=== PATIENT | male | born 1975 | race African-American/Black ===

== ENCOUNTER 2016-08-16 08:19 | Emergency (ER) | payer BC, MEDICAID ==
[2016-08-16] MEDS ORDERED: NORMAL SALINE 1000 ML 1,000 ML IV ONE ×2 (09:24→11:25)
[2016-08-16 10:10] LABS: ABSOLUTE EOSINOPHILS # (AUTO) 0.1 10^3/uL (0.0-0.6); ABSOLUTE LYMPHOCYTES (AUTO) 1.5 10^3/uL (0.5-4.7); ABSOLUTE MONOCYTES (AUTO) 0.4 10^3/uL (0.1-1.4); ABSOLUTE NEUT (AUTO) 2.5 10^3/uL (1.7-8.2); BASOPHILS % (AUTO) 0.5 % (0-2); EOSINOPHILS % (AUTO) 2.2 % (0-6); HEMATOCRIT 45.2 % (37.9-51.0); HEMOGLOBIN 14.6 g/dL (13.5-17.0); HGB HCT DIFFERENCE -1.4; LYMPHOCYTES % (AUTO) 33.2 % (13-45); MEAN CORPUSCULAR HEMOGLOBIN 26.9 pg (27.0-33.4); MEAN CORPUSCULAR HGB CONC 32.3 g/dL (32.0-36.0); MEAN CORPUSCULAR VOLUME 84 fl (80-97); MONOCYTES % (AUTO) 9.1 % (3-13); RED BLOOD COUNT 5.41 10^6/uL (4.35-5.55); RED CELL DISTRIBUTION WIDTH 15.1 % (11.5-14.0); WHITE BLOOD COUNT 4.6 10^3/uL (4.0-10.5)
[2016-08-16 10:29] LABS: ALANINE AMINOTRANSFERASE 29 U/L (21-72); ALBUMIN 3.8 g/dL (3.5-5.0); ALKALINE PHOSPHATASE 70 U/L (38-126); ANION GAP 11 (5-19); ASPARTATE AMINO TRANSFERASE 18 U/L (17-59); BILIRUBIN,TOTAL 0.4 mg/dL (0.2-1.3); BLOOD UREA NITROGEN 14 mg/dL (7-20); CARBON DIOXIDE 31 mmol/L (22-30); CHLORIDE 94 mmol/L (98-107); CREATININE RESULT 0.94 mg/dL (0.52-1.25); POTASSIUM 4.3 mmol/L (3.6-5.0); SODIUM 136.3 mmol/L (137-145); TOTAL PROTEIN 6.8 g/dL (6.3-8.2)
[2016-08-16 10:46] LABS: GLUCOSE 406 mg/dL (75-110)
[2016-08-16] MEDS ORDERED: AMLODIPINE BESYLATE 5 MG TABLET PO ONE (11:41)
[2016-08-16 12:28] LABS: APPEARANCE,URINE CLEAR; BILIRUBIN,URINE NEGATIVE (NEGATIVE); GLUCOSE, URINE >=500 mg/dL (NEGATIVE); KETONES,URINE NEGATIVE (NEGATIVE); LEUKOCYTE ESTERASE,URINE NEGATIVE (NEGATIVE); NITRITE,URINE NEGATIVE (NEGATIVE); PROTEIN,URINE NEGATIVE (NEGATIVE); URINE SPECIFIC GRAVITY 1.029; UROBILINOGEN,URINE NEGATIVE mg/dL (<2.0)
--- NOTE | 2016-08-16 12:48 | ER Document Report ---
ED General - General Chief Complaint: Dizziness Stated Complaint: BLOOD SUGAR PROBLEMS TRAVEL OUTSIDE OF THE [place] IN LAST 30 DAYS: No - HPI Patient complains to provider of: elevated blood sugars dizziness Notes: Patient coming in for evaluation of elevated blood sugars and dizziness. Patient looks a [facility] when symptoms started nurses at the penitentiary checked his blood sugar read high therefore referred to the ER for further evaluation. Patient states history of hypertension and prediabetes states he was on metformin at one time but currently is off of it patient states he does not have a primary care physician and therefore is not have a medical evaluation some time. Patient denies fevers chills nausea vomiting diarrhea recent trauma head pain or abdominal pain. Patient states she has been drinking plenty of fluids to stay well hydrated patient otherwise is in no acute stress. Patient states dizziness is worse when ambulated feels more lightheaded otherwise lying flat patient has no symptoms. - Related Data Allergies/Adverse Reactions: No Known Allergies Allergy (Verified 08/16/16 08:29) Past Medical History - Social History Smoking Status: Never Smoker Chew tobacco use (# tins/day): No Frequency of alcohol use: None Drug Abuse: None Family History: Reviewed & Not Pertinent Patient has suicidal ideation: No Patient has homicidal ideation: No - Past Medical History Cardiac Medical History: Reports: Hx Hypertension Endocrine Medical History: Reports: Hx Diabetes Mellitus Type 2 - unconfirmed Renal/ Medical History: Denies: Hx Peritoneal Dialysis Surgical Hx: Negative - Immunizations Hx Diphtheria, Pertussis, Tetanus Vaccination: Yes Review of Systems - Review of Systems Constitutional: Other - Dizziness hypertension and hyperglycemia EENT: No symptoms reported Cardiovascular: No symptoms reported Respiratory: No symptoms reported Gastrointestinal: No symptoms reported Genitourinary: No symptoms reported Male Genitourinary: No symptoms reported Musculoskeletal: No symptoms reported Skin: No symptoms reported Hematologic/Lymphatic: No symptoms reported Neurological/Psychological: No symptoms reported Physical Exam - Vital signs Vitals: Temp Pulse Resp BP Pulse Ox 98.4 F 76 18 173/109 H 97 08/16/16 08:23 08/16/16 08:23 08/16/16 08:23 08/16/16 08:23 08/16/16 08:23 Interpretation: Hypertensive - General General appearance: Appears well, Alert - HEENT Head: Normocephalic, Atraumatic Eyes: Normal Pupils: PERRL - Respiratory Respiratory status: No respiratory distress Chest status: Nontender Breath sounds: Normal Chest palpation: Normal - Cardiovascular Rhythm: Regular Heart sounds: Normal auscultation Murmur: No - Abdominal Inspection: Normal Distension: No distension Bowel sounds: Normal Tenderness: Nontender Organomegaly: No organomegaly - Back Back: Normal, Nontender - Extremities General upper extremity: Normal inspection, Nontender, Normal color, Normal ROM , Normal temperature General lower extremity: Normal inspection, Nontender, Normal color, Normal ROM , Normal temperature, Normal weight bearing. No: Bonnie's sign - Neurological Neuro grossly intact: Yes Cognition: Normal Orientation: AAOx4 [place] Coma Scale Eye Opening: Spontaneous [place] Coma Scale Verbal: Oriented [place] Coma Scale Motor: Obeys Commands [place] Coma Scale Total: 15 Speech: Normal Motor strength normal: LUE, RUE, LLE, RLE Sensory: Normal - Psychological Associated symptoms: Normal affect, Normal mood - Skin Skin Temperature: Warm Skin Moisture: Dry Skin Color: Normal Course - Re-evaluation Re-evalutation: 08/16/16 16:19 Patient's lab work shows elevated blood sugar and also an elevated hemoglobin H 1C. Patient was given a dose of amlodipine initially for his blood pressure. Offered evaluation patient has been started on Natrecor thiazide 12.5 mg in the past. At this time patient shows no signs of DKA or HHS. Patient will be started on metformin 500 mg twice a day and Hydrocort thiazide 25 mg daily. Patient was educated and encouraged follow-up with local primary care physician. Explanation of disease process from diabetes under control hypertension was explained to the patient patient stands this increases risk of infection MD dialysis agitation. - Vital Signs Vital signs: Temp Pulse Resp BP Pulse Ox 98.3 F 76 25 H 181/124 H 100 08/16/16 11:00 08/16/16 08:23 08/16/16 12:38 08/16/16 12:38 08/16/16 12:38 - Laboratory Result Diagrams: 08/16/16 09:40 08/16/16 09:40 Laboratory results interpreted by me: 08/16/16 08/16/16 08/16/16 08:32 09:40 09:40 MCH 26.9 L RDW 15.1 H Sodium 136.3 L Chloride 94 L Carbon Dioxide 31 H Glucose 406 H* POC Glucose 424 H* Hemoglobin A1c % Urine Glucose (UA) Urine Ascorbic Acid 08/16/16 08/16/16 08/16/16 09:40 09:40 11:32 MCH RDW Sodium Chloride Carbon Dioxide Glucose POC Glucose 311 H Hemoglobin A1c % > 14.0 H Urine Glucose (UA) >=500 H Urine Ascorbic Acid 20 H Discharge - Discharge Clinical Impression: Hyperglycemia Diabetes Qualifiers: Diabetes mellitus type: other specified (including RORY) Diabetes mellitus complication status: without complication Diabetes mellitus long-term insulin use: without long-term use Qualified Code(s): E13.9 - Other specified diabetes mellitus without complications HTN (hypertension) Qualifiers: Hypertension type: essential hypertension Qualified Code(s): I10 - Essential ( primary) hypertension Disposition: HOME, SELF-CARE Instructions: Diabetes ([facility]), High Blood Pressure, Requiring Treatment ([facility]), Glucophage ([facility]), Family Physicians / Practices Additional Instructions: Take medications as prescribed. Return to ER if symptoms worsen. Prescriptions: Amlodipine Besylate 5 mg PO DAILY #30 tab Hydrochlorothiazide 25 mg PO DAILY #30 tablet Metformin HCl [Metformin HCl ER] 500 mg PO BID #60 [id number] Forms: Return to Work
[2016-08-16 12:56] VITALS: BP 181/124
== END 2016-08-16 13:10 | disposition home or self-care (01) ==
LOC: ER 08:19
DX: E13.65 Other specified diabetes mellitus with hyperglycemia (principal); R42 Dizziness and giddiness; I10 Essential (primary) hypertension
CPT/HCPCS: 99284; 36415; 82962; 83690; 85025; 80053; 81001; 83036; J7030

== ENCOUNTER 2016-10-24 09:22 | Emergency (ER) | payer BC ==
[2016-10-24] MEDS ORDERED: FLUCONAZOLE 100 MG TABLET PO ONE (09:50)
--- NOTE | 2016-10-24 09:58 | ER Document Report ---
HPI - HPI Patient complains to provider of: penile problem Onset: Other - 3 weeks Onset/Duration: Waxing and waning Quality of pain: Achy Pain Level: 1 Context: Pt c/o exudative drainage to penis and foreskin. Pt denies any injury or concern for STD. Pt states that he stopped taking his metformin as he was concerned that the medication may be causing the exudate. Pt states he ran out of his blood pressure medication and does not currently have a primary care provider. Associated Symptoms: Other - penis problem. denies: Fever Exacerbated by: Denies Relieved by: Denies Similar symptoms previously: No Recently seen / treated by doctor: No - ROS ROS below otherwise negative: Yes Systems Reviewed and Negative: Yes All other systems reviewed and negative - CONSTITUTIONAL Constitutional: DENIES: Fever, Chills - NEURO Neurology: DENIES: Headache - RESPIRATORY Respiratory: DENIES: Trouble Breathing, Coughing - GASTROINTESTINAL Gastrointestinal: DENIES: Nausea, Patient vomiting - URINARY Urinary: DENIES: Dysuria - REPRODUCTIVE Reproductive: DENIES: : Notes: drainage from skin of penis - DERM Skin Color: Normal Skin Problems: Rash Past Medical History - Social History Smoking Status: Never Smoker Chew tobacco use (# tins/day): No Frequency of alcohol use: None Drug Abuse: None 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[employer], [employer]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 IN LAST 30 DAYS: No - HEENT HEENT: Atraumatic, Normocephalic - NECK Neck: Normal Inspection - RESPIRATORY Respiratory: Breath Sounds Normal, No Respiratory Distress, Chest Non-Tender O2 Sat by Pulse Oximetry: 97 - CARDIOVASCULAR Cardiovascular: Regular Rate, Regular Rhythm, No Murmur - REPRODUCTIVE Male Genitalia: Abnormal Inspection Notes: exudative erythematous lesions to glans and foreskin of penis, no inguinal lymphadenopathy, RN Christi as standby - BACK Back: Normal Inspection - MUSCULOSKELETAL/EXTREMETIES Musculoskeletal/Extremeties: SANDY DUMAS - NEURO Level of Consciousness: Awake, Alert, Appropriate Motor/Sensory: No Motor Deficit - DERM Integumentary: Warm, Dry, Rash Course - Re-evaluation Re-evalutation: 10/24/16 pt advised of elevated bp here in the dept. pt encouraged to f/u with a pcp to get his blood pressure rechecked, and have his medications adjusted if needed. - Vital Signs Vital signs: Temp Pulse Resp BP Pulse Ox 98.3 F 81 16 170/101 H 97 10/24/16 09:27 10/24/16 09:27 10/24/16 09:27 10/24/16 09:27 10/24/16 09:27 - Laboratory Laboratory results interpreted by me: 10/24/16 12:49 Labs- Entire Visit 10/24/16 10/24/16 09:48 10:00 POC Glucose 304 H Chlamydia DNA (PCR) NOT DETECTED N.gonorrhoeae DNA (PCR) NOT DETECTED Discharge - Discharge Clinical Impression: Hx of diabetes mellitus, Hx of essential hypertension, Balanitis Condition: Stable Disposition: HOME, SELF-CARE Instructions: Balanitis ([facility]), Diabetes ([facility]), High Blood Pressure ([facility]), Family Physicians / Practices Additional Instructions: follow up with a primary care provider for a recheck, they may need to adjust your diabetes medication and restart you back on your blood pressure medications keep area clean and dry take your metformin as prescribed Prescriptions: Amlodipine Besylate 5 mg PO DAILY #30 tab Clotrimazole 1 applic TP BID #30 cream.gm. Forms: Elevated Blood Pressure, Return to Work Referrals: [facility] [Provider Group] - Follow up as needed
[2016-10-24 10:35] VITALS: BP 197/122
[2016-10-24 11:52] LABS: CHLAM PCR NOT DETECTED (NOT DETECT)
== END 2016-10-24 10:35 | disposition home or self-care (01) ==
LOC: ER 09:22
DX: N48.1 Balanitis (principal); E11.9 Type 2 diabetes mellitus without complications; I10 Essential (primary) hypertension; Z91.14 Patient's other noncompliance with medication regimen
CPT/HCPCS: 82962; 87250; 87491; 87591; 99283

== ENCOUNTER 2019-01-12 11:59 | Emergency (ER) | payer SELFPAY ==
[2019-01-12 12:10] VITALS: BP 172/107
--- NOTE | 2019-01-12 12:13 | ER Document Report ---
HPI - HPI Time Seen by Provider: 01/12/19 12:10 Pain Level: 4 Notes: Patient is a 43-year-old male with a history of diet-controlled diabetes, hypertension who presents complaining of sore throat and possible strep pharyngitis. Patient states that he started having a sore throat yesterday. Patient states that he has had strep before and this feels similar. He is able to eat and drink without difficulty otherwise. He is urinating normally and having normal bowel movements. Denies recent illness. Denies drug allergies. Denies any headache, fever, neck pain, changes in vision/speech/mentation/hearing, URI, chest pain, palpitations, syncope, cough, shortness of breath, wheeze, dyspnea, abdominal pain, nausea/vomiting/diarrhea, urinary retention, dysuria, hematuria, or rash. - ROS Systems Reviewed and Negative: Yes All other systems reviewed and negative - REPRODUCTIVE Reproductive: DENIES: : Past Medical History - Social History Smoking Status: Never Smoker Family History: Reviewed & Not Pertinent - Past Medical History Cardiac Medical History: Reports: Hx Hypertension Endocrine Medical History: Reports: Hx Diabetes Mellitus Type 2 - unconfirmed Renal/ Medical History: Denies: Hx Peritoneal Dialysis - Immunizations Hx Diphtheria, Pertussis, Tetanus Vaccination: Yes Vertical Provider Document - CONSTITUTIONAL Agree With Documented VS: Yes Notes: PHYSICAL EXAMINATION: GENERAL: Well-appearing, well-nourished and in no acute distress. A&Ox4. A nswers questions appropriately. Moves comfortably w/o notable distress HEAD: Atraumatic, normocephalic. EYES: Pupils equal round and reactive to light, extraocular movements intact, sclera anicteric, conjunctiva are normal. ENT: EAC clear b/l. TM's intact b/l without erythema, fluid, or perforation. Nares patent and with clear discharge. oropharynx mild erythema without exudates. 1-2+ tonsilar hypertrophy with mild erythema no exudate. No palatine shift. Uvula midline. No tongue protrusion. No drooling, hoarseness, or airway compromise. Moist mucous membranes. No sinus tenderness. NECK: Normal range of motion, supple without lymphadenopathy. No rigidity/meningismus. LUNGS: Breath sounds clear to auscultation bilaterally and equal. No wheezes rales or rhonchi. No retractions HEART: Regular rate and rhythm without murmurs, rubs, gallops. NEUROLOGICAL: Normal speech, normal gait. PSYCH: Normal mood, normal affect. SKIN: Warm, Dry, normal turgor, no rashes or lesions noted. - INFECTION CONTROL TRAVEL OUTSIDE OF THE [place] IN LAST 30 DAYS: No Course - Re-evaluation Re-evalutation: 01/12/19 Patient is an afebrile, well-hydrated, 43-year-old male who presents with acute pharyngitis, suspect viral. Vitals are acceptable without significant tachycardia, tachypnea, or hypoxia. PE is otherwise unremarkable. Patient is nontoxic-appearing and is tolerating p.o. without difficulty. Rapid strep was negative with throat culture pending. No further work-up warranted at this time. Low suspicion for any meningitis, sepsis, peritonsillar/pharyngeal abscess, respiratory compromise, Chong's, or other emergent systemic condition at this time. Patient is aware this condition can change from initial presentation and he needs to monitor symptoms closely. Conservative measures otherwise for symptoms. Recheck with your PCM in 2-3 days. Return to the ED wi th any worsening/concerning symptoms otherwise as reviewed in discharge. Patient is in agreement. - Vital Signs Vital signs: Temp Pulse Resp BP Pulse Ox 99.0 F 93 16 172/107 H 95 01/12/19 12:05 01/12/19 12:05 01/12/19 12:05 01/12/19 12:05 01/12/19 12:05 Discharge - Discharge Clinical Impression: Sore throat Condition: Stable Disposition: HOME, SELF-CARE Instructions: Sore Throat ([facility]) Additional Instructions: Maintain adequate fluid intake Take meds as directed Salt water gargles, throat sprays, mouthwash rinse, peroxide gargles tylenol/ibuprofen as needed New toothbrush tomorrow evening over the counter cold medication as needed for symptoms F/u: with your PCM in 2-3 days for a recheck Consider consult with ENT for ongoing/worsening symptoms Return to the ED with any fever, worsening pain, chest pain, neck pain/stiffness, shortness of breath, cough, drooling, trouble swallowing/breathing, abdominal pain, n/v/d, rash, or worsening/concerning sympt oms otherwise. Forms: Elevated Blood Pressure Referrals: [facility] [Primary Care Provider] - Follow up in 3-5 days KYRA CRUZ DO [ASSOCIATE] - Follow up as needed
== END 2019-01-12 12:50 | disposition home or self-care (01) ==
LOC: ER 11:59
DX: J02.9 Acute pharyngitis, unspecified (principal); J35.1 Hypertrophy of tonsils; E11.9 Type 2 diabetes mellitus without complications; I10 Essential (primary) hypertension; R09.89 Other specified symptoms and signs involving the circulatory and respiratory systems
CPT/HCPCS: 87070; 87077; 87880; 99283

== ENCOUNTER → 2019-02-22 | Outpatient (CLI) | payer SELFPAY ==
[~2019-02-22] MED LIST: ALBUTEROL SULFATE 0.083% NEB 2.5 MG/3 ML AMPUL NEB ONE
--- NOTE | 2019-02-23 11:13 | Pulmonary Function Test ---
Pulmonary Function Test Date of Procedure:: 02/23/19 INDICATION:: Dyspnea Referring Provider: [facility] Hospitalist: Divina Guido, [facility] COORDINATOR - Report Spirometry: Spirometry: pre-FVC: 3.76 L 64% post-FVC: 3.56 L 61% pre-FEV:1 2.82 L 59% post-FEV1: 2.82 L 59% pre-FEV1/FVC %: 75 post-FEV1/FVC%: 79 predicted: 81 [id number]%: 2.31 L 48% [id number]%: 2.71 L 56% Impression: obstructive defect is inferred by the decrease flow in FEF 25-75% with reasonable response to bronchodilator therapy. Restrictive ventilatory defect is inferred by the decrease flow in FVC. (Restrictive defect may mask the degree of obstruction.) If clinically indicated complete pulmonary function test would be warranted
== END ==
LOC: RT 13:58
PROVIDERS: ATTEND Internal Medicine
DX: G47.30 Sleep apnea, unspecified (principal); R06.83 Snoring
CPT/HCPCS: 94060

== ENCOUNTER → 2019-02-22 | Outpatient (CLI) | payer OTHER ==
--- NOTE | 2019-02-22 15:41 | RADIOLOGY REPORT (SQ) ---
EXAM DESCRIPTION: CHEST PA/LATERAL COMPLETED DATE/TIME: 02/22/2019 3:29 pm REASON FOR STUDY: ESSENTIAL (PRIMARY) HYPERTENSION COMPARISON: None. EXAM PARAMETERS: NUMBER OF VIEWS: two views TECHNIQUE: Digital Frontal and Lateral radiographic views of the chest acquired. RADIATION DOSE: NA LIMITATIONS: none FINDINGS: LUNGS AND PLEURA: No opacities, masses or pneumothorax. No pleural effusion. MEDIASTINUM AND HILAR STRUCTURES: No masses or contour abnormalities. HEART AND VASCULAR STRUCTURES: Heart normal size. No evidence for failure. BONES: No acute findings. HARDWARE: None in the chest. OTHER: No other significant finding. IMPRESSION: NO SIGNIFICANT RADIOGRAPHIC FINDING IN THE CHEST. TECHNICAL DOCUMENTATION: JOB ID: [id number] [employer]- All Rights Reserved Reading location - IP/workstation name: [email or web address]
== END ==
LOC: CCC 15:08
DX: I10 Essential (primary) hypertension (principal); E11.9 Type 2 diabetes mellitus without complications
CPT/HCPCS: 71046

== ENCOUNTER 2019-06-14 12:16 | Emergency (ER) | payer SELFPAY ==
[2019-06-14 12:33] VITALS: BP 201/107
--- NOTE | 2019-06-14 13:02 | ER Document Report ---
ED Medical Screen (RME) - General Chief Complaint: Congestion Stated Complaint: CONGESTION/COUGH Time Seen by Provider: 06/14/19 12:52 Primary Care Provider: [facility] [Primary Care Provider] - Follow up as needed Notes: Patient is a 43-year-old male with a history of hypertension and type 2 diabetes who presents to the emergency department with a chief complaint of chest congestion. Patient reports he is had a productive cough with green to dark sputum for about 2 weeks. Patient denies blood in the sputum. Patient reports he was recently exposed to the flu. Patient denies fever. Patient reports at times he does feel he has a slight headache. Patient reports over the past few months his blood sugars been running in the 600s. Patient reports he was prescribed metformin and lisinopril but has not taken these in a while due to "not like the way it made him feel." Patient also reports that his blood pressure runs high normally. TRAVEL OUTSIDE OF THE [place] IN LAST 30 DAYS: No - Related Data Allergies/Adverse Reactions: No Known Allergies Allergy (Verified 10/24/16 09:25) Home Medications: pt is prescribed lisinopril and metformin, pt does not take medications. Past Medical History - Social History Frequency of alcohol use: None Drug Abuse: None - Past Medical History Cardiac Medical History: Reports: Hx Hypertension Endocrine Medical History: Reports: Hx Diabetes Mellitus Type 2 - unconfirmed Renal/ Medical History: Denies: Hx Peritoneal Dialysis - Immunizations Hx Diphtheria, Pertussis, Tetanus Vaccination: Yes Physical Exam - Vital signs Vitals: Temp Pulse Resp BP Pulse Ox 98.3 F 87 16 201/107 H 97 06/14/19 12:30 06/14/19 12:30 06/14/19 12:30 06/14/19 12:30 06/14/19 12:30 - Respiratory Respiratory status: No respiratory distress Chest status: Nontender Breath sounds: Normal Chest palpation: Normal Course - Re-evaluation Re-evalutation: 06/14/19 13:02 I have greeted and performed a rapid initial assessment of this patient. A comprehensive ED assessment and evaluation of the patient, analysis of test results and completion of the medical decision making process will be conducted by additional ED providers. - Vital Signs Vital signs: Temp Pulse Resp BP Pulse Ox 98.3 F 87 16 201/107 H 97 06/14/19 12:30 06/14/19 12:30 06/14/19 12:30 06/14/19 12:30 06/14/19 12:30 Doctor's Discharge - Discharge Referrals: [facility] [Primary Care Provider] - Follow up as needed
[2019-06-14 13:33] LABS: ABSOLUTE EOSINOPHILS # (AUTO) 0.1 10^3/uL (0.0-0.6); ABSOLUTE LYMPHOCYTES (AUTO) 1.9 10^3/uL (0.5-4.7); ABSOLUTE MONOCYTES (AUTO) 0.5 10^3/uL (0.1-1.4); ABSOLUTE NEUT (AUTO) 2.4 10^3/uL (1.7-8.2); BASOPHILS % (AUTO) 0.7 % (0-2); EOSINOPHILS % (AUTO) 2.9 % (0-6); HEMATOCRIT 44.4 % (37.9-51.0); HEMOGLOBIN 14.7 g/dL (13.5-17.0); LYMPHOCYTES % (AUTO) 37.9 % (13-45); MEAN CORPUSCULAR HEMOGLOBIN 27.2 pg (27.0-33.4); MEAN CORPUSCULAR VOLUME 82 fl (80-97); MONOCYTES % (AUTO) 10.7 % (3-13); PLATELET COUNT 194 10^3/uL (150-450); RED BLOOD COUNT 5.38 10^6/uL (4.35-5.55); RED CELL DISTRIBUTION WIDTH 15.3 % (11.5-14.0); SEGMENTED NEUTROPHILS % (AUTO) 47.8 % (42-78); TOTAL CELLS COUNTED % (AUTO) 100 %
--- NOTE | 2019-06-14 13:49 | ER Document Report ---
ED Respiratory Problem - General Chief Complaint: Congestion Stated Complaint: CONGESTION/COUGH Time Seen by Provider: 06/14/19 12:52 Primary Care Provider: [facility] [NO LOCAL MD] - Follow up as needed TRAVEL OUTSIDE OF THE [place] IN LAST 30 DAYS: No - HPI Notes: CHIEF COMPLAINT: Cough and cold symptoms for 3 weeks HPI: 43-year-old obese male presenting to the emergency department for evaluation of a productive cough for 2 to 3 weeks. States his son was positive for flu before . He has not had a fever. Denies chest pain shortness of breath. States he is having green sputum with the cough. Patient also states that he has not taking his blood pressure medication currently because he does not like how it makes him feel. States he was prescribed lisinopril 20 mg daily stopped the medication several months ago. ROS: See HPI - all other systems were reviewed and are otherwise negative Constitutional: no fever or recent illness Eyes: no drainage, no blurred vision ENT: no runny nose, no sore throat Cardiovascular: no chest pain Resp: no SOB, + cough GI: no vomiting, no diarrhea : no dysuria Integumentary: no rash Allergy: no hives Musculoskeletal: no extremity pain or swelling Neurological: no numbness/tingling, no weakness MEDICATIONS: I agree with the patient medications as charted by the RN. ALLERGIES: I agree with the allergies as charted by the RN. PAST MEDICAL HISTORY/PAST SURGICAL HISTORY: Reviewed and agree as charted by RN. SOCIAL HISTORY: Reviewed and agree as charted by RN. FAMILY HISTORY: No significant familial comorbid conditions directly related to patient complaint EXAM: Reviewed vital signs as charted by RN. CONSTITUTIONAL: Alert and oriented and responds appropriately to questions. Well-appearing; well-nourished HEAD: Normocephalic; atraumatic EYES: PERRL; Conjunctivae clear, sclerae non-icteric ENT: normal nose; no rhinorrhea; moist mucous membranes; pharynx without lesions noted NECK: Supple without meningismus; non-tender; no cervical lymphadenopathy, no masses CARD: RRR; no murmurs, no clicks, no rubs, no gallops; symmetric distal pulses. Pulse oximetry 97% on room air not hypoxic RESP: Normal chest excursion without splinting or tachypnea; breath sounds clear and equal bilaterally; no wheezes, no rhonchi, no rales, ABD/GI: Normal bowel sounds; non-distended; soft, non-tender, no rebound, no guarding; no palpable organomegaly or masses. BACK: The back appears normal and is non-tender to palpation, there is no CVA tenderness EXT: Normal ROM in all joints; non-tender to palpation; no cyanosis, no effusions, no edema SKIN: Normal color for age and race; warm; dry; good turgor; no acute lesions noted NEURO: Moves all extremities equally; Motor and sensory function intact PSYCH: The patient's mood and manner are appropriate. Grooming and personal hygiene are appropriate. - Related Data Allergies/Adverse Reactions: No Known Allergies Allergy (Verified 10/24/16 09:25) Home Medications: pt is prescribed lisinopril and metformin, pt does not take medications. Past Medical History - Social History Smoking Status: Never Smoker Cigarette use (# per day): No Chew tobacco use (# tins/day): No Smoking Education Provided: No Frequency of alcohol use: None Drug Abuse: None Family History: Reviewed & Not Pertinent Patient has suicidal ideation: No Patient has homicidal ideation: No - Past Medical History Cardiac Medical History: Reports: Hx Hypertension Endocrine Medical History: Reports: Hx Diabetes Mellitus Type 2 - unconfirmed Renal/ Medical History: Denies: Hx Peritoneal Dialysis - Immunizations Hx Diphtheria, Pertussis, Tetanus Vaccination: Yes Review of Systems - Review of Systems Constitutional: See HPI Physical Exam - Vital signs Vitals: Temp Pulse Resp BP Pulse Ox 98.3 F 87 16 201/107 H 97 06/14/19 12:30 06/14/19 12:30 06/14/19 12:30 06/14/19 12:30 06/14/19 12:30 Course - Re-evaluation Re-evalutation: 06/14/19 13:48 43-year-old male presenting for evaluation of upper respiratory symptoms for 3 weeks. I have reviewed the patient's chest x-ray did not see a significant infiltrate suggesting pneumonia. Will treat patient for bronchitis given the length of time of symptoms with Zithromax, albuterol MDI. Patient states that lisinopril makes him feel slow so he did not take the medication but did not address this with his PCP. We discussed blood pressure management and risk outcomes. Patient is willing to try a lower dose medication such as Norvasc and HCTZ. 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 a blood pressure cuff check pressure twice daily and follow-up with PCP - Vital Signs Vital signs: Temp Pulse Resp BP Pulse Ox 98.3 F 87 16 201/107 H 97 06/14/19 12:30 06/14/19 12:30 06/14/19 12:30 06/14/19 12:30 06/14/19 12:30 - Laboratory Result Diagrams: 06/14/19 13:13 06/14/19 13:13 Laboratory results interpreted by me: 06/14/19 06/14/19 13:13 13:13 RDW 15.3 H Carbon Dioxide 33 H Glucose 303 H AST 16 L - Diagnostic Test Radiology reviewed: Image reviewed - no infiltrate Discharge - Discharge Clinical Impression: Bronchitis, acute Qualifiers: Bronchitis organism: unspecified organism Qualified Code(s): J20.9 - Acute bronchitis, unspecified HTN (hypertension) Qualifiers: Hypertension type: essential hypertension Qualified Code(s): I10 - Essential (primary) hypertension Condition: Good Disposition: HOME, SELF-CARE Instructions: Bronchitis ([facility]), High Blood Pressure, Requiring Treatment ([facility]) Additional Instructions: Take the medications as prescribed, use the albuterol inhaler 2 puffs every 4 hours as needed for shortness of breath or coughing. Follow-up with your primary care provider for reevaluation call for appointment. Obtain a blood pressure cuff and check your blood pressure twice daily recording or findings to bring to your primary care provider Prescriptions: Hydrochlorothiazide 12.5 mg PO DAILY #30 tablet Amlodipine Besylate [Norvasc 5 mg Tablet] 5 mg PO DAILY #30 tablet Albuterol Sulfate [Proair HFA Inhalation Aerosol 8.5 gm MDI] 2 puff IH Q4H PRN #1 mdi PRN Reason: Azithromycin [Zithromax 250 mg Tablet] 250 mg PO ASDIR PRN #6 tablet PRN Reason: Referrals: [facility] [NO LOCAL MD] - Follow up as needed
[2019-06-14 13:50] LABS: ALBUMIN 3.8 g/dL (3.5-5.0); ALKALINE PHOSPHATASE 65 U/L (38-126); ANION GAP 8 (5-19); ASPARTATE AMINO TRANSFERASE 16 U/L (17-59); BILIRUBIN,DIRECT 0.3 mg/dL (0.0-0.4); BILIRUBIN,TOTAL 0.4 mg/dL (0.2-1.3); BLOOD UREA NITROGEN 14 mg/dL (7-20); CALCIUM 9.7 mg/dL (8.4-10.2); CARBON DIOXIDE 33 mmol/L (22-30); CHLORIDE 99 mmol/L (98-107); GLUCOSE 303 mg/dL (75-110); TOTAL PROTEIN 7.2 g/dL (6.3-8.2)
--- NOTE | 2019-06-14 13:50 | RADIOLOGY REPORT (SQ) ---
EXAM DESCRIPTION: CHEST 2 VIEWS COMPLETED DATE/TIME: 06/14/2019 1:34 pm REASON FOR STUDY: chest congestion COMPARISON: 02/22/19. EXAM PARAMETERS: NUMBER OF VIEWS: two views TECHNIQUE: Digital Frontal and Lateral radiographic views of the chest acquired. RADIATION DOSE: NA LIMITATIONS: none FINDINGS: LUNGS AND PLEURA: No opacities, masses or pneumothorax. No pleural effusion. MEDIASTINUM AND HILAR STRUCTURES: No masses or contour abnormalities. HEART AND VASCULAR STRUCTURES: Heart normal size. No evidence for failure. BONES: No acute findings. HARDWARE: None in the chest. OTHER: No other significant finding. IMPRESSION: NO ACUTE RADIOGRAPHIC FINDING IN THE CHEST. TECHNICAL DOCUMENTATION: JOB ID: [id number] [employer]- All Rights Reserved Reading location - IP/workstation name: [email or web address]
[2019-06-14 13:51] LABS: A TYPE INFLUENZA AG NEGATIVE (NEGATIVE); B INFLUENZA AG NEGATIVE (NEGATIVE)
== END 2019-06-14 14:11 | disposition home or self-care (01) ==
LOC: ER 12:16
DX: J20.9 Acute bronchitis, unspecified (principal); R05 Cough; I10 Essential (primary) hypertension; T46.4X6A Underdosing of angiotensin-converting-enzyme inhibitors, initial encounter; Z91.128 Patient's intentional underdosing of medication regimen for other reason; Z91.14 Patient's other noncompliance with medication regimen; Z20.828 Contact with and (suspected) exposure to other viral communicable diseases
CPT/HCPCS: 36415; 71046; 80053; 85025; 87804; 99283

== ENCOUNTER 2020-03-04 17:54 | Emergency (ER) | payer SELFPAY ==
[2020-03-04 18:04] VITALS: BP 196/115
[2020-03-04] MEDS ORDERED: AMLODIPINE BESYLATE 5 MG TABLET PO ONE (18:39)
[2020-03-04] MEDS ORDERED: AMOXICILLIN TRIHYDRATE 500 MG CAPSULE PO ONE (18:40)
--- NOTE | 2020-03-04 18:40 | ER Document Report ---
HPI - HPI Time Seen by Provider: 03/04/20 18:31 Pain Level: 1 Notes: CHIEF COMPLAINT: Dental pain and hypertension HPI: 44-year-old male presenting for dental pain right lower wisdom teeth and molars. States that 2 or 3 months ago he tried to remove his wisdom tooth on the right lower side because it was bothering him but ended up fracturing the tooth. Has not seen a dentist for further evaluation of this and now has increasing pain and swelling around that area. Patient also admits that he has not been taking his blood pressure medication for 2 or 3 months because he felt like the side effects of the medication were making him somewhat loopy did not discuss this with his primary care provider regarding change of medication. Denies headache neck pain chest pain abdominal pain shortness of breath numbness tingling in the extremities ROS: See HPI - all other systems were reviewed and are otherwise negative Constitutional: no fever Eyes: no drainage, no blurred vision ENT: no runny nose, no sore throat positive dental pain Cardiovascular: no chest pain Resp: no SOB, no cough GI: no vomiting, no diarrhea, no abdominal pain : no dysuria Integumentary: no rash Allergy: no hives Musculoskeletal: no extremity pain or swelling Neurological: no numbness/tingling, no weakness MEDICATIONS: I agree with the patient medications as charted by the RN. ALLERGIES: I agree with the allergies as charted by the RN. PAST MEDICAL HISTORY/PAST SURGICAL HISTORY: Reviewed and agree as charted by RN. SOCIAL HISTORY: Reviewed and agree as charted by RN. FAMILY HISTORY: No significant familial comorbid conditions directly related to patient complaint EXAM: Reviewed vital signs as charted by RN. CONSTITUTIONAL: Alert and oriented and responds appropriately to questions. Well-appearing; well-nourished HEAD: Normocephalic; atraumatic EYES: PERRL; Conjunctivae clear, sclerae non-icteric ENT: normal nose; no rhinorrhea; moist mucous membranes; pharynx without lesions noted, no uvula edema or deviation, no tonsillar hypertrophy, phonation normal. Right lower second and third molars are noted to have significant dental caries with some gingival edema. No sublingual swelling no trismus. No significant submental swelling NECK: Supple without meningismus; non-tender; no cervical lymphadenopathy, no masses CARD: RRR; no murmurs, no clicks, no rubs, no gallops; symmetric distal pulses RESP: Normal chest excursion without splinting or tachypnea; breath sounds clear and equal bilaterally; no wheezes, no rhonchi, no rales, pulse oximetry 97% on room air not hypoxic ABD/GI: Morbidly obese, normal bowel sounds; non-distended; soft, non-tender, no rebound, no guarding; no palpable organomegaly or masses. BACK: The back appears normal and is non-tender to palpation, there is no CVA tenderness EXT: Normal ROM in all joints; no cyanosis, no effusions, no edema SKIN: Normal color for age and race; warm; dry; good turgor NEURO: Moves all extremities equally; Motor and sensory function intact PSYCH: The patient's mood and manner are appropriate. Grooming and personal hygiene are appropriate. MDM: 44-year-old male uncontrolled hypertension noncompliance with medication regimen and dental caries causing dental pain. We will place him on amoxicillin and a very short course of pain medication. We had a long conversation about blood pressure management and the essential need for him to take his medication or he will likely have a stroke or other significant coronary issue. Patient will call his PCP on Friday to discuss the fact that he felt like his blood pressure medication was causing him to be loopy and he stopped taking it because of the side effect issue. - REPRODUCTIVE Reproductive: DENIES: : Past Medical History - Social History Smoking Status: Never Smoker Family History: Reviewed & Not Pertinent - Past Medical History Cardiac Medical History: Reports: Hx Hypertension Endocrine Medical History: Reports: Hx Diabetes Mellitus Type 2 - unconfirmed Renal/ Medical History: Denies: Hx Peritoneal Dialysis - Immunizations Hx Diphtheria, Pertussis, Tetanus Vaccination: Yes Vertical Provider Document - INFECTION CONTROL TRAVEL OUTSIDE OF THE [place] IN LAST 30 DAYS: No Course - Vital Signs Vital signs: Temp Pulse Resp BP Pulse Ox 98.3 F 88 20 196/115 H 96 03/04/20 18:03 03/04/20 18:03 03/04/20 18:03 03/04/20 18:03 03/04/20 18:03 Discharge - Discharge Clinical Impression: Pain due to dental caries Hypertension Qualifiers: Hypertension type: essential hypertension Qualified Code(s): I10 - Essential (primary) hypertension Condition: Fair Disposition: HOME, SELF-CARE Additional Instructions: Make sure you check your blood pressure twice a day and record your findings. Make sure you are taking your blood pressure medication consistently. Take the antibiotics and pain medications as prescribed no driving if taking narcotics for pain. Follow-up with a dentist for definitive management of your dental issues. Call your primary care provider on Friday to talk to them about your hypertension and your blood pressure medications and the side effects you felt were affecting your ability to take the medication. Prescriptions: Amoxicillin 1 tab PO TID #30 tab Hydrocodone/Acetaminophen [[place] 5-325 mg Tablet] 1 tab PO Q4 PRN #10 tablet PRN Reason:
== END 2020-03-04 18:49 | disposition home or self-care (01) ==
LOC: ER 17:54
DX: K02.9 Dental caries, unspecified (principal); I10 Essential (primary) hypertension; E11.9 Type 2 diabetes mellitus without complications
CPT/HCPCS: 99283

== ENCOUNTER 2020-05-09 08:54 | Emergency (ER) | payer SELFPAY ==
[2020-05-09 09:54] LABS: ABSOLUTE LYMPHOCYTES (AUTO) 0.9 10^3/uL (0.5-4.7); ABSOLUTE MONOCYTES (AUTO) 0.6 10^3/uL (0.1-1.4); ABSOLUTE NEUT (AUTO) 1.9 10^3/uL (1.7-8.2); BASOPHILS % (AUTO) 0.5 % (0-2); EOSINOPHILS % (AUTO) 0.2 % (0-6); HEMATOCRIT 44.8 % (37.9-51.0); HEMOGLOBIN 14.6 g/dL (13.5-17.0); LYMPHOCYTES % (AUTO) 27.6 % (13-45); MEAN CORPUSCULAR HEMOGLOBIN 27.5 pg (27.0-33.4); MEAN CORPUSCULAR HGB CONC 32.5 g/dL (32.0-36.0); MEAN CORPUSCULAR VOLUME 85 fl (80-97); MONOCYTES % (AUTO) 16.1 % (3-13); PLATELET COUNT 121 10^3/uL (150-450); RED BLOOD COUNT 5.31 10^6/uL (4.35-5.55); RED CELL DISTRIBUTION WIDTH 14.6 % (11.5-14.0); SEGMENTED NEUTROPHILS % (AUTO) 55.6 % (42-78); TOTAL CELLS COUNTED % (AUTO) 100 %; WHITE BLOOD COUNT 3.4 10^3/uL (4.0-10.5)
--- NOTE | 2020-05-09 10:00 | ER Document Report ---
Entered by SCOTT DONALDSON SCRIBE 05/09/2028 Acting as scribe for:JON WOODS MD ED General - General Chief Complaint: Cough Stated Complaint: COUGH,CONGESTION,FEVER,CHILLS Time Seen by Provider: 05/09/20 09:14 Mode of Arrival: Ambulatory Information source: Patient Notes: This 44-year-old male patient with unmedicated hypertension and DM type 2 presents to the emergency department today with complaints of a cough with green thick sputum, fevers, body aches, and a headache for the last few days. Patient reports he is still able to taste and smell. Patient denies any nausea, vomiting, diarrhea, or throat pain. TRAVEL OUTSIDE OF THE [place] IN LAST 30 DAYS: No - Related Data Allergies/Adverse Reactions: No Known Allergies Allergy (Verified 05/09/20 09:29) Past Medical History - General Information source: Patient - Social History Smoking Status: Never Smoker Cigarette use (# per day): No Frequency of alcohol use: None Drug Abuse: None Lives with: Family Family History: Reviewed & Not Pertinent - Past Medical History Cardiac Medical History: Reports: Hx Hypertension - unmedicated Endocrine Medical History: Reports: Hx Diabetes Mellitus Type 2 - unmedicated Surgical Hx: Negative - Immunizations Hx Diphtheria, Pertussis, Tetanus Vaccination: Yes Review of Systems - Review of Systems Constitutional: See HPI, Fever EENT: denies: Throat pain Cardiovascular: No symptoms reported Respiratory: See HPI, Cough Gastrointestinal: denies: Diarrhea, Nausea, Vomiting Genitourinary: No symptoms reported Male Genitourinary: No symptoms reported Musculoskeletal: See HPI, Muscle pain Skin: No symptoms reported Hematologic/Lymphatic: No symptoms reported Neurological/Psychological: See HPI, Headaches -: Yes All other systems reviewed and negative Physical Exam - Vital signs Vitals: Temp Pulse Resp BP Pulse Ox 98.2 F 110 H 16 185/110 H 96 05/09/20 09:11 05/09/20 09:11 05/09/20 09:11 05/09/20 09:11 05/09/20 09:11 - Notes Notes: Physical Exam: General: Alert, appears well. HEENT: Normocephalic. Atraumatic. PERRL. Extraocular movements intact. Mild posterior oropharynx erythema, no exudate, airway is patent. TMs are clear and non-bulging bilaterally. Nasal congestion. Neck: Supple. Non-tender. Respiratory: No respiratory distress. Coarse breath sounds bilaterally. Cardiovascular: Regular rate and rhythm. Abdominal: Obese. Non-tender. No distension. Normal Bowel Sounds. Back: No gross abnormalities. Extremities: Moves all four extremities. Upper extremities: Normal inspection. Normal ROM. Lower extremities: Normal inspection. No edema. Normal ROM. Neurological: Normal cognition. AAOx4. Normal speech. Psychological: Normal affect. Normal Mood. Skin: Warm. Dry. Normal color. Course - Re-evaluation Re-evalutation: 05/09/20 09:51 The patient was evaluated during the global COVID-19 pandemic and that diagnosis was suspected/considered upon their initial presentation. Their evaluation, treatment and testing was consistent with current guidelines for patients who present with complaints or symptoms that may be related to COVID-19. - Vital Signs Vital signs: Temp Pulse Resp BP Pulse Ox 98.2 F 110 H 16 185/110 H 96 05/09/20 09:11 05/09/20 09:11 05/09/20 09:11 05/09/20 09:11 05/09/20 09:11 - Laboratory Result Diagrams: 05/09/20 09:35 05/09/20 09:35 Laboratory results interpreted by me: 05/09/20 05/09/20 05/09/20 09:35 09:35 09:35 WBC 3.4 L RDW 14.6 H Plt Count 121 L [place] % (Auto) 16.1 H Sodium 134.2 L Chloride 97 L Glucose 380 H Hemoglobin A1c % 13.4 H Discharge - Discharge Clinical Impression: Viral upper respiratory tract infection with cough, High blood pressure associa nohemi with diabetes, Medically noncompliant Hyperglycemia due to type 2 diabetes mellitus Qualifiers: Diabetes mellitus manager long term care insulin use: without manager long term care use Qualified Code(s): E11.65 - Type 2 diabetes mellitus with hyperglycemia Condition: Stable Disposition: HOME, SELF-CARE Additional Instructions: Upper Respiratory Illness: You have a viral infection of the respiratory passages -- a "cold." This common infection causes nasal congestion, drainage, and often sore throat and cough. It is caused by a virus and is highly contagious. The disease usually lasts a week or more, though the worst symptoms are usually over in 3 or 4 days. There is no "cure" for the viral infection -- it must run its course. If there is a complication, such as bacterial infection in the nose, sinuses, middle ear, or bronchial tubes, antibiotics may be required, but antibiotics won't affect the virus. If you smoke, you should STOP!! Drink plenty of fluids. A humidifier may help. An expectorant medication or decongestant may make you more comfortable. Use acetaminophen or ibuprofen for fever or aches. See the doctor if fever persists over two or three days, if there is any significant worsening of your symptoms, or if you simply fail to improve as expected. Drink plenty of fluids and get plenty of rest. Take medications as prescribed for your high blood pressure and high blood sugar. Do not take cough and cold medications that will increase your blood pressure. Try Robitussin-DM or Delsym DM to help suppress your cough as needed. Due to the symptoms you are having during this COVID-19 outbreak, you should self isolate at home and get a COVID-19 test done before you return to work. Follow-up with a local primary care provider to help manage your blood pressure and diabetes. RETURN TO THE EMERGENCY ROOM IF ANY NEW OR WORSENING SYMPTOMS. Prescriptions: Hydrochlorothiazide 12.5 mg PO QAM #30 capsule Metformin HCl 850 mg PO BID #60 tablet Amlodipine Besylate [Norvasc 10 mg Tablet] 10 mg PO DAILY #30 tablet I personally performed the services described in the documentation, reviewed and edited the documentation which was dictated to the scribe in my presence, and it accurately records my words and actions.
[2020-05-09 10:10] LABS: ALBUMIN 3.6 g/dL (3.5-5.0); ALKALINE PHOSPHATASE 60 U/L (38-126); ANION GAP 7 (5-19); ASPARTATE AMINO TRANSFERASE 20 U/L (17-59); BILIRUBIN,DIRECT 0.1 mg/dL (0.0-0.4); BILIRUBIN,TOTAL 0.5 mg/dL (0.2-1.3); BLOOD UREA NITROGEN 13 mg/dL (7-20); CARBON DIOXIDE 30 mmol/L (22-30); CHLORIDE 97 mmol/L (98-107); GLUCOSE 380 mg/dL (75-110); POTASSIUM 3.9 mmol/L (3.6-5.0); TOTAL PROTEIN 6.5 g/dL (6.3-8.2)
--- NOTE | 2020-05-09 10:39 | RADIOLOGY REPORT (SQ) ---
EXAM DESCRIPTION: CHEST SINGLE VIEW IMAGES COMPLETED DATE/TIME: 05/09/2020 10:20 am REASON FOR STUDY: Cough, congestion, fever, body aches COMPARISON: 06/14/2019 EXAM PARAMETERS: NUMBER OF VIEWS: One view. TECHNIQUE: Single frontal radiographic view of the chest acquired. RADIATION DOSE: NA LIMITATIONS: None. FINDINGS: LUNGS AND PLEURA: No opacities, masses or pneumothorax. No pleural effusion. MEDIASTINUM AND HILAR STRUCTURES: No masses. Contour normal. HEART AND VASCULAR STRUCTURES: Heart normal in size. Normal vasculature. BONES: No acute findings. HARDWARE: None in the chest. OTHER: No other significant finding. IMPRESSION: NO ACUTE RADIOGRAPHIC FINDING IN THE CHEST. TECHNICAL DOCUMENTATION: JOB ID: [id number] [employer]- All Rights Reserved Reading location - IP/workstation name: [email or web address]
[2020-05-09 12:02] VITALS: BP 185/107
== END 2020-05-09 12:02 | disposition home or self-care (01) ==
LOC: ER 08:54
DX: J06.9 Acute upper respiratory infection, unspecified (principal); R05 Cough; E11.65 Type 2 diabetes mellitus with hyperglycemia; I10 Essential (primary) hypertension; R50.9 Fever, unspecified; R09.81 Nasal congestion; M79.10 Myalgia, unspecified site; R51.9 Headache, unspecified; Z91.14 Patient's other noncompliance with medication regimen
CPT/HCPCS: 36415; 71045; 80053; 83036; 85025; 99284